=== PATIENT | female | born 1980 | race Hispanic/Latino ===

== ENCOUNTER 2023-04-02 10:26 | Emergency (ER) | payer BC, MEDICAID ==
[~2023-04-02] VITALS: Ht 157.5 cm; Wt 59.0 kg
[2023-04-02 11:13] LABS: RAPID GROUP A STREP negative (NEGATIVE); SARS-CoV-2, RNA, NAAT NEGATIVE SARS CoV-2 (NEGATIVE)
[2023-04-02 11:23] LABS: INFLUENZA TYPE A Negative For Type A (NEGATIVE); INFLUENZA TYPE B Negative For Type B (NEGATIVE)
[2023-04-02] MEDS ORDERED: AMOX500T2 PO (11:26)
[2023-04-02] MEDS ORDERED: DEXAMETHASONE 4 MG TAB PO SCH (12:00)
[2023-04-02 12:11] VITALS: BP 120/80; PULSE 99; RESP 14; O2SAT 100
== END 2023-04-02 12:12 | disposition home or self-care (01) ==
LOC: EDH 10:26
DX: J06.9 Acute upper respiratory infection, unspecified (principal); H02.846 Edema of left eye, unspecified eyelid; H92.01 Otalgia, right ear; Z20.822 Contact with and (suspected) exposure to COVID-19; Z98.890 Other specified postprocedural states
CPT/HCPCS: 99283; 87635; 87880; 87804 ×2; J8540